=== PATIENT | male | born 1965 | race Two or more races ===

== ENCOUNTER → 2024-05-02 | Outpatient (CLI) | payer MEDICAID, SELFPAY ==
--- NOTE | 2024-05-02 09:30 | XR_ITS ---
Examination: Upper GI series with KUB Esophagram standard Fluoroscopy AP spot fluoroscopic films esophagus stomach Exam date and time: May 02 2024 1002 hours INDICATIONS: Heartburn beginning 6 weeks ago TECHNIQUE AND FINDINGS: Medical Officer Psychiatry AP supine abdomen single view nonobstructive bowel gas pattern Patient swallowed thin barium with 21 spot fluoroscopic films of the esophagus stomach and duodenum obtained Primary peristaltic esophageal waves Moderate intermittent gastroesophageal reflux No stricture the gastroesophageal junction Peristalsis traverses the stomach normally Duodenal bulb expands symmetrically No duodenal ulcer Small bowel loops unremarkable IMPRESSION: Moderate intermittent gastroesophageal reflux No stricture the gastroesophageal junction No gastric mass deformity or ulceration Fluoroscopy 0.1 minutes 18 spot fluoroscopic films of the chest and abdomen
== END | disposition home or self-care (01) ==
PROVIDERS: Referring Provider Physician Assistant; Visit Provider Physician Assistant
DX: K21.9 Gastro-esophageal reflux disease without esophagitis (principal)
CPT/HCPCS: 74240